=== PATIENT | female | born 1970 | race Caucasian/White ===

== ENCOUNTER 2021-02-01 02:33 | Emergency (ER) | payer BC ==
[~2021-02-01] VITALS: Ht 172.7 cm; Wt 63.6 kg
--- NOTE | 2021-02-01 05:43 | REPVR ---
PROCEDURE INFORMATION: Exam: CT Head Without Contrast Exam date and time: 02/01/2021 3:50 AM Age: 50 years old Clinical indication: Injury or trauma; Fall; Concussion/head injury; Additional info: Fall down stairs TECHNIQUE: Imaging protocol: Computed tomography of the head without contrast. Radiation optimization: All CT scans at this facility use at least one of these dose optimization techniques: automated exposure control; mA and/or kV adjustment per patient size (includes targeted exams where dose is matched to clinical indication); or iterative reconstruction. COMPARISON: No relevant prior studies available. FINDINGS: Brain: The cortical/white matter interfaces are preserved throughout the brain. There is no evidence of intracranial hemorrhage. Cerebral ventricles: The ventricular system is normal in size and configuration. Paranasal sinuses: The visualized paranasal sinuses are clear. Mastoid air cells: The mastoid air cells are clear. Bones/joints: No acute fractures of the skull are identified. Soft tissues: There is hyperdense superficial soft tissue swelling in the right parietal region, consistent with a superficial hematoma. IMPRESSION: 1. No evidence of acute intracranial injury. 2. Right parietal superficial hematoma. Electronically signed by: Sally Olson On 02/01/2021 05:43:30 AM
--- NOTE | 2021-02-01 05:50 | REPVR ---
PROCEDURE INFORMATION: Exam: CT Cervical Spine Without Contrast Exam date and time: 02/01/2021 3:50 AM Age: 50 years old Clinical indication: Neck pain; Additional info: Fall down stairs TECHNIQUE: Imaging protocol: Computed tomography images of the cervical spine without contrast. Radiation optimization: All CT scans at this facility use at least one of these dose optimization techniques: automated exposure control; mA and/or kV adjustment per patient size (includes targeted exams where dose is matched to clinical indication); or iterative reconstruction. COMPARISON: No relevant prior studies available. FINDINGS: Bones/joints: There is normal alignment of the visualized spine. There is no evidence of acute fracture. Discs/Spinal canal/Neural foramina: There is narrowing of the C5-C6 disc with associated endplate sclerosis and endplate spurs and a small posterior disc osteophyte complex, extending somewhat asymmetrically toward the right side. There is no significant central canal stenosis but there is bilateral neural foraminal narrowing at C5-C6, right worse than left. There is mild hypertrophic facet arthropathy at multiple levels, most prominent on the left side at C4-C5. Prevertebral Space: The prevertebral soft tissues appear normal. Lungs: There is mild peripheral fibrotic change in the visualized lung apices. Soft tissues: Unremarkable. IMPRESSION: 1. Normal alignment. No acute fractures identified. 2. Degenerative disc disease at C5-C6. 3. Mild multilevel facet arthropathy. Electronically signed by: Sally Olson On 02/01/2021 05:49:25 AM
--- NOTE | 2021-02-01 05:52 | REPVR ---
PROCEDURE INFORMATION: Exam: CT Maxillofacial Without Contrast Exam date and time: 02/01/2021 3:50 AM Age: 50 years old Clinical indication: Injury or trauma; Fall; Concussion/head injury; Loss of consciousness not known; Additional info: Fall down stairs TECHNIQUE: Imaging protocol: Computed tomography images of the face without contrast. Radiation optimization: All CT scans at this facility use at least one of these dose optimization techniques: automated exposure control; mA and/or kV adjustment per patient size (includes targeted exams where dose is matched to clinical indication); or iterative reconstruction. COMPARISON: No relevant prior studies available. FINDINGS: Orbital cavity: The globes are intact bilaterally. The intraconal fat and extraocular muscles appear normal bilaterally. The orbital rims are intact. Bones/joints: There is no evidence of acute fracture. Paranasal sinuses: The paranasal sinuses are clear. Soft tissues: The soft tissues appear unremarkable. IMPRESSION: No acute fractures identified. Electronically signed by: Sally Olson On 02/01/2021 05:52:20 AM
[2021-02-01] MEDS ORDERED: DULO1CAP4 PO (06:43)
[2021-02-01] MEDS ORDERED: marijuana PO (06:43)
[2021-02-01 07:55] LABS: BASO % 0.5 % (0.0-1.0); EOS % 0.5 % (0.0-3.0); HEMATOCRIT 42.8 % (36.0-47.0); HEMOGLOBIN 14.1 g/dl (12.0-15.5); LYMPH # 0.9 10^3/uL (1.5-5.0); LYMPH % 12.9 % (24.0-44.0); MEAN CORPUSCULAR HEMOGLOBIN 32.2 pg (27.0-33.0); MEAN CORPUSCULAR HGB CONC 32.9 g/dl (32.0-36.5); MEAN CORPUSCULAR VOLUME 97.7 fl (80.0-96.0); MONO # 0.7 10^3/uL (0.0-0.8); MONO % 10.3 % (2.0-8.0); NEUTROPHILS % 75.3 % (36.0-66.0); PLATELET COUNT, AUTOMATED 240 10^3/uL (150-450); RED BLOOD COUNT 4.38 10^6/uL (4.00-5.40); WHITE BLOOD COUNT 6.6 10^3/uL (4.0-10.0)
--- NOTE | 2021-02-01 08:32 | REP ---
INDICATION: HTN/r/o end organ damage. COMPARISON: None. TECHNIQUE: PA lateral FINDINGS: Lungs are mildly hyperinflated with increased AP diameter and prominent retrosternal clear space suggesting some COPD. There is no effusion, infiltrate, atelectasis or mass. See no evidence of a pneumothorax. Heart is not enlarged. There is no vascular redistribution or pulmonary edema. The aorta is without aneurysm, normal appearance for age. Airway midline. No widening of the mediastinum. Bony thorax shows no compression deformity or focal lesion in the spine. The remainder of visualized bones also intact. There is a transverse thin metallic wire across the anterior lower neck which is not seen on a business services coordinator film for CT cervical spine earlier this date and accordingly felt to represent clothing/gown artifact. IMPRESSION: 1. Some hyperinflation changes of COPD. No acute cardiopulmonary disease. <Electronically signed by Heladio Queen > 02/01/21 [id number]
[2021-02-01 08:35] LABS: ALBUMIN 4.2 GM/DL (3.2-5.2); ALT/SGPT 57 U/L (12-78); BILIRUBIN,DIRECT 0.2 MG/DL (0.0-0.2); BILIRUBIN,TOTAL 0.7 MG/DL (0.2-1.0); CK-MB VALUE MASS < 1.0 NG/ML (<3.6); CPK CREATINE PHOSPHOKINASE 54 U/L (26-192); LIPASE 191 U/L (73-393); MB/CK RELATIVE INDEX 1.85 (< OR =4); THYROID STIMULATING HORMONE 0.951 uIU/ML (0.358-3.740); TOTAL PROTEIN 8.5 GM/DL (6.4-8.2); TROPONIN I < 0.02 NG/ML (< 0.10)
[2021-02-01 10:10] VITALS: BP 140/101
--- NOTE | 2021-02-01 12:48 | ECGEPIP ---
[facility] - ED Test Date: 2021-02-01 Pat Name: FELY SAMUELS Department: Room: - Gender: Female [employer]iano [employer]over: : 1970 Requested By: GLADYS Mckeon PA-C Order Number: [id number] Reading MD: Brunilda Haque Measurements Intervals [place] Rate: 65 P: 13 MN: 134 QRS: 71 QRSD: 90 T: 57 QT: 430 QTc: 447 Interpretive Statements Normal sinus rhythm Nonspecific ST T wave changes Delayed R wave progression No prior ECG for comparison Electronically Signed on 02-01-2021 12:48:17 EDT by Brunilda Haque
== END 2021-02-01 10:11 | disposition home or self-care (01) ==
LOC: M ED 02:33
DX: S06.0X1A Concussion with loss of consciousness of 30 minutes or less, initial encounter (principal); S00.83XA Contusion of other part of head, initial encounter; S70.11XA Contusion of right thigh, initial encounter; W10.8XXA Fall (on) (from) other stairs and steps, initial encounter; Y92.018 Other place in single-family (private) house as the place of occurrence of the external cause; M50.30 Other cervical disc degeneration, unspecified cervical region; I10 Essential (primary) hypertension; D64.9 Anemia, unspecified; M47.819 Spondylosis without myelopathy or radiculopathy, site unspecified; Z88.8 Allergy status to other drugs, medicaments and biological substances; Z87.891 Personal history of nicotine dependence

== ENCOUNTER 2022-02-14 11:31 | Emergency (ER) | payer BC, OTHER ==
[~2022-02-14] VITALS: Ht 170.2 cm; Wt 68.4 kg
[~2022-02-14 11:31] MED LIST: DULO1CAP4 PO; marijuana PO
[2022-02-14] MEDS ORDERED: PREG75CA2 PO (11:41)
[2022-02-14] MEDS ORDERED: IRBE150T7 PO (11:41)
[2022-02-14] MEDS ORDERED: ONDANSETRON 4MG 2ML VIAL IV ONE (13:30)
[2022-02-14] MEDS ORDERED: MORPHINE 4 MG/ML 1ML VIAL/SYRINGE IV ONE (13:30)
[2022-02-14 14:05] LABS: BASO % 0.3 % (0.0-1.0); EOS % 0.3 % (0.0-3.0); HEMATOCRIT 39.6 % (36.0-47.0); HEMOGLOBIN 12.8 g/dl (12.0-15.5); LYMPH # 1.3 10^3/uL (1.5-5.0); LYMPH % 19.8 % (24.0-44.0); MEAN CORPUSCULAR HEMOGLOBIN 32.1 pg (27.0-33.0); MEAN CORPUSCULAR HGB CONC 32.3 g/dl (32.0-36.5); MEAN CORPUSCULAR VOLUME 99.2 fl (80.0-96.0); MONO # 0.6 10^3/uL (0.0-0.8); MONO % 8.9 % (2.0-8.0); NEUTROPHILS # 4.6 10^3/uL (1.5-8.5); NEUTROPHILS % 70.4 % (36.0-66.0); PLATELET COUNT, AUTOMATED 240 10^3/uL (150-450); RED BLOOD COUNT 3.99 10^6/uL (4.00-5.40); WHITE BLOOD COUNT 6.5 10^3/uL (4.0-10.0)
[2022-02-14] MEDS ORDERED: ISOVUE-370 76% 100ML VIAL As Ordered ONE (14:21)
[2022-02-14] MEDS ORDERED: LIDO5DIS41 TOP (16:15)
[2022-02-14] MEDS ORDERED: CYCL5TAB PO (16:15)
[2022-02-14] MEDS ORDERED: PERC5TAB12 PO (16:15)
[2022-02-14 16:37] VITALS: BP 136/79
== END 2022-02-14 16:45 | disposition home or self-care (01) ==
LOC: M ED 12:56
DX: S20.221A Contusion of right back wall of thorax, initial encounter (principal); S62.366A Nondisplaced fracture of neck of fifth metacarpal bone, right hand, initial encounter for closed fracture; W01.0XXA Fall on same level from slipping, tripping and stumbling without subsequent striking against object, initial encounter; Y92.009 Unspecified place in unspecified non-institutional (private) residence as the place of occurrence of the external cause; N94.89 Other specified conditions associated with female genital organs and menstrual cycle; Q50.5 Embryonic cyst of broad ligament; I10 Essential (primary) hypertension; Z88.6 Allergy status to analgesic agent; Z88.8 Allergy status to other drugs, medicaments and biological substances; Z79.899 Other long term (current) drug therapy
CPT/HCPCS: 73130; 74177; 80047; 85025; 96374; 96375; 99284; J2270; J2405

== ENCOUNTER 2024-12-03 14:13 | Emergency (ER) | payer OTHER ==
[~2024-12-03] VITALS: Ht 170.2 cm; Wt 70.4 kg
[~2024-12-03 14:13] MED LIST changes: +CYCL5TAB4 PO; +IRBE150T27 PO; +LIDO1ADH93 TOP; +PERC5TAB12 PO; +PREG75CA3 PO
[2024-12-03 15:15] LABS: BASO # 0.0 10^3/uL (0.0-0.2); BASO % 0.4 % (0.0-1.0); EOS # 0.0 10^3/uL (0.0-0.5); EOS % 0.4 % (0.0-3.0); LYMPH # 2.0 10^3/uL (1.5-5.0); LYMPH % 29.1 % (24.0-44.0); MONO # 0.7 10^3/uL (0.0-0.8); MONO % 10.5 % (2.0-8.0); NEUTROPHILS # 4.0 10^3/uL (1.5-8.5); NEUTROPHILS % 59.5 % (36.0-66.0); PLATELET COUNT, AUTOMATED 187 10^3/uL (150-450)
[2024-12-03 15:27] LABS: INR 1.02
[2024-12-03] MEDS ORDERED: ISOVUE-370 76% 100 ML VIAL As Ordered ONE (15:31)
[2024-12-03] MEDS: LIDOCAINE 2% 5 ML JELLY UROJET TOP ONE (15:43)
[2024-12-03] MEDS: NS 500 ML IV ONE (15:44)
[2024-12-03 15:51] LABS: KETONE, URINE AUTO RFX NEGATIVE (NEGATIVE); NITRITE, URINE AUTO RFX NEGATIVE (NEGATIVE); RBC, URINE AUTO RFX 0 /HPF (0-3); SQUAM EPITHELIAL CELL UR AURFX 1 /HPF (0-6); TRANSITIONAL EPITHELIAL AU RFX <1 /HPF; WBC, URINE AUTO RFX 3 /HPF (0-3)
[2024-12-03 15:51] LABS: ALT/SGPT 11 U/L (7.0-40); AST/SGOT 15 U/L (<34); CALCIUM LEVEL 8.4 MG/DL (8.5-10.1); CARBON DIOXIDE LEVEL 28 MMOL/L (20-31); CHLORIDE LEVEL 109 MMOL/L (98-107); CREATININE FOR GFR 0.68 MG/DL (0.55-1.30); GLOMERULAR FILTRATION RATE > 90.0 (>51); POTASSIUM SERUM 3.8 MMOL/L (3.5-5.1); SODIUM LEVEL 145 MMOL/L (136-145)
[2024-12-03 15:59] LABS: LEUKOCYTE ESTERASE UR AUTO RFX TRACE (NEGATIVE)
[2024-12-03 20:00] VITALS: BP 157/76; TEMP 97.6; O2SAT 100
[2024-12-03] MEDS: GABAPENTIN 300 MG CAP PO ONE (20:11)
[2024-12-03 20:15] VITALS: BP 148/80; TEMP 97.9; O2SAT 100
[2024-12-03 21:00] VITALS: BP 140/69; TEMP 97.3; O2SAT 100
[2024-12-03 22:30] VITALS: BP 141/81; TEMP 97.4; O2SAT 98
== END 2024-12-03 22:35 | disposition home or self-care (01) ==
LOC: M ED 14:13
DX: N99.840 Postprocedural hematoma of a genitourinary system organ or structure following a genitourinary system procedure (principal); D64.9 Anemia, unspecified; I10 Essential (primary) hypertension; Z88.5 Allergy status to narcotic agent; Z88.6 Allergy status to analgesic agent; Z88.8 Allergy status to other drugs, medicaments and biological substances; Z79.899 Other long term (current) drug therapy
CPT/HCPCS: 36430; 51701; 71045; 74174; 80047; 80048; 80076; 81001; 82150; 83605; 83690; 84145; 85025; 85610; 85730; 86850; 86900; 86901; 86920; 87040; 87086; 93041; 96360; 96361; 99285; P9016; Q9967